=== PATIENT | male | born 1990 | race Caucasian/White ===

== ENCOUNTER 2016-10-20 17:20 | Emergency (ER) | payer OTHER ==
[~2016-10-20] VITALS: Ht 185.4 cm; Wt 120.0 kg
[~2016-10-20 17:20] MED LIST: ADDERALL XR 2020 MG PO; ADDERALL XR 3030 MG PO; ADDERALL20 MG PO; ADDERALL30 MG PO; B-121000 MC2 PO; BENZTROPINE MESY1 MG PO; CLEOCIN300 MG PO; CLONAZEPAM0.5 MG PO; DESYREL100 MG PO; DEXTROAMP-AMPHE30 MG PO; GEODON60 MG PO; HALDOL5 MG PO; KLONOPIN0.5 M1 PO; LEXAPRO10 MG PO; LEXAPRO20 MG PO; MOTRIN600 MG PO; PERPHENAZINE4 MG PO; PROTONIX40 MG PO; QUETIAPINE FUM400 MG PO; RISPERIDONE2 MG PO; SAPHRIS10 MG SL; SEROQUEL; STRATTERA25 MG PO; TRAZODONE HCL50 MG PO; TRILAFON4 MG PO; ZIPRASIDONE HCL60 MG PO; ZOLPIDEM TARTRAT5 MG PO
[2016-10-20 20:42] VITALS: BP 110/74
== END 2016-10-20 20:43 | disposition home or self-care (01) ==
LOC: EME 17:20
DX: F91.9 Conduct disorder, unspecified (principal); S60.519A Abrasion of unspecified hand, initial encounter; W22.8XXA Striking against or struck by other objects, initial encounter; Y92.009 Unspecified place in unspecified non-institutional (private) residence as the place of occurrence of the external cause; F17.200 Nicotine dependence, unspecified, uncomplicated
CPT/HCPCS: 99281; 99283

== ENCOUNTER → 2016-11-05 | Outpatient (CLI) | payer OTHER | END | disposition home or self-care (01) | LOC: RAD 12:28 | DX: R05 Cough (principal) | CPT/HCPCS: 71020 ==

== ENCOUNTER 2016-12-26 07:34 | Inpatient (IN) | payer OTHER ==
[~2016-12-26] VITALS: Ht 185.4 cm; Wt 113.0 kg
[2016-12-26] MEDS ORDERED: ADDERALL20 MG PO (07:53)
[2016-12-26] MEDS ORDERED: TRAZODONE HCL100 MG PO (07:53)
[2016-12-26 08:46] LABS: ADD MIUA? NO; BILIRUBIN NEGATIVE; BLOOD NEGATIVE; COLOR YELLOW ((YELLOW)); GLUCOSE (STRIP) NEGATIVE; KETONES NEGATIVE; LEUKOCYTES NEGATIVE; NITRITE NEGATIVE; PROTEIN (STRIP) NEGATIVE; SPECIFIC GRAVITY 1.011 (1.000-1.030); UROBILINOGEN 0.2 MG/DL (0.2-1.0)
[2016-12-26 08:48] LABS: BASOPHIL COUNT 0.1 K/uL (0-0.1); EOSINOPHIL (%) 1.7 % (0-5); EOSINOPHIL COUNT 0.1 K/uL (0-0.3); HEMATOCRIT 45.3 % (38.0-50.0); IMMATURE GRANULOCYTE (%) 0.3 % (0.0-0.7); INSTRUMENT ABS NEUTROPHIL CT 4.4 K/uL; LYMPHOCYTE COUNT 2.3 K/uL (1.0-2.8); MCH 29.4 PG (29.0-34.0); MCV 86.5 FL (86-99); MEAN PLAT.VOLUME 10.8 uM^3 (9.0-12.4); MONOCYTE (%) 7.6 % (3-12); MONOCYTE COUNT 0.6 K/uL (0-0.8); NEUTROPHIL (%) 58.8 % (45-76); NEUTROPHIL COUNT 4.4 K/uL (1.8-6.4); PLATELET COUNT 345 K/uL (156-360); RBC DIS.WIDTH-CV 13.1 % (11.8-14.6); RBC DIS.WIDTH-SD 41.1 % (39-53); RED BLOOD COUNT 5.24 M/uL (4.00-5.50); WHITE BLOOD COUNT 7.5 K/uL (4.1-10.2)
[2016-12-26 08:58] LABS: CHLORIDE 106 mEq/L (99-109); POTASSIUM 4.4 mEq/L (3.7-5.4); SODIUM 139 mEq/L (136-147)
[2016-12-26 09:00] LABS: GLUCOSE 115 mg/dL (70-99)
[2016-12-26 09:02] LABS: ANION GAP 13 MEQ/L (2-14)
[2016-12-26 09:03] LABS: SERUM ETHYL ALCOHOL < 10 mg/dL
[2016-12-26 09:04] LABS: GFR ESTIMATE (CALCULATED) > 59 mL/min/
[2016-12-26 09:05] LABS: UREA NITROGEN (BUN) 14 mg/dL (9-23)
[2016-12-26 09:20] LABS: THC CANNABINOIDS PRESUMPTIVE POSITIVE (50 ng/mL)
[2016-12-26 09:21] LABS: ADD MEDTOX COMMENT Y; AMPHETAMINE PRESUMPTIVE POSITIVE (500 ng/mL); BARBITURATES NEGATIVE (200 ng/mL); BENZODIAZEPINES NEGATIVE (150 ng/mL); COCAINE NEGATIVE (150 ng/mL); INTERNAL CONTROLS VALID? YES; METHADONE NEGATIVE (200 ng/mL); METHAMPHETAMINE NEGATIVE (500 ng/mL); OPIATES (MORPHINE) PRESUMPTIVE POSITIVE (100 ng/mL); OXYCODONE NEGATIVE (100 ng/mL); PHENCYCLIDINE NEGATIVE (25 ng/mL); PROPOXYPHENE NEGATIVE (300 ng/mL); TRICYCLIC ANTIDEPRESSANTS NEGATIVE (300 ng/mL)
[2016-12-26 09:56] LABS: OPIATES QUANTITATIVE VALUE 0 NG/ML
[2016-12-26] MEDS ORDERED: ERGOCALCIF50000 UNIT PO (10:30)
[2016-12-26] MEDS ORDERED: ADDERALL XR 2020 MG PO (10:32)
[2016-12-26 11:15] VITALS: BP 117/68
[2016-12-26 11:42] VITALS: BP 127/66
[2016-12-26] MEDS ORDERED: TRAZODONE HCL150 MG PO (12:28)
[2016-12-26] MEDS ORDERED: TRILAFON8 MG PO (12:37)
[2016-12-26 15:56] VITALS: BP 117/70
[2016-12-27 10:29] VITALS: BP 121/74
[2016-12-27 15:25] VITALS: BP 125/70
[2016-12-28 08:13] VITALS: BP 108/56
[2016-12-28 15:36] VITALS: BP 112/55
[2016-12-29 07:42] VITALS: BP 116/58
[2016-12-29 16:08] VITALS: BP 114/76
[2016-12-30 07:56] VITALS: BP 131/78
[2016-12-30] MEDS ORDERED: TRAZODONE HCL100 MG PO (10:09)
[2016-12-30] MEDS ORDERED: LITHIUM CARBON300 M2 PO (10:09)
== END 2016-12-30 11:07 | disposition home or self-care (01) | DRG 885 ==
LOC: EME → EDBD 07:34 → EME 07:34 → EDOF 09:53 → 1WEST 09:53
PROVIDERS: Emergency Medicine
DX: F25.9 Schizoaffective disorder, unspecified (principal); R45.851 Suicidal ideations; F11.90 Opioid use, unspecified, uncomplicated; F12.90 Cannabis use, unspecified, uncomplicated; F60.2 Antisocial personality disorder; F15.90 Other stimulant use, unspecified, uncomplicated; F17.200 Nicotine dependence, unspecified, uncomplicated; S61.512A Laceration without foreign body of left wrist, initial encounter; X78.9XXA Intentional self-harm by unspecified sharp object, initial encounter; Z88.0 Allergy status to penicillin; Z88.2 Allergy status to sulfonamides
CPT/HCPCS: 80048; 80178; 81003; 84999; 85025; 90837; 97150 GO; 97165 GO; 99281; 99285; G0480; Q0175